=== PATIENT | male | born 1955 | race Hispanic/Latino ===

== ENCOUNTER 2017-08-12 12:09 | Outpatient (CLI) | payer OTHER ==
--- NOTE | 2017-08-12 14:17 | RAD ---
TWO VIEWS RIGHT SHOULDER: Comparison: None. History: Right shoulder pain. FINDINGS: Two views of the right shoulder shows no evidence of acute fracture or dislocation. No degenerative c hanges are seen in the acromioclavicular joint. There is mild glenohumeral degenerative change. The v isualized right thorax is unremarkable. IMPRESSION: Mild right shoulder osteoarthritis without acute osseous abnormality. POS: [facility]
== END 2017-08-12 12:10 | disposition home or self-care (01) ==
LOC: NAV RAD 12:09
PROVIDERS: ATTEND Family Medicine
DX: M25.511 Pain in right shoulder (principal); M19.011 Primary osteoarthritis, right shoulder